=== PATIENT | male | born 1960 | race Caucasian/White ===

== ENCOUNTER 2016-07-17 21:42 | Emergency (ER) | payer MEDICAID ==
[~2016-07-17] VITALS: Ht 182.9 cm; Wt 99.8 kg
[2016-07-17 21:42] VITALS: BP 147/85
--- NOTE | 2016-07-17 21:42 | NUR ---
PATIENT BIBA TO ER BED 3
--- NOTE | 2016-07-17 22:09 | NUR ---
56/M PATIENT BIBA TO ED WITH C/O SOB AND COUGH X2DAYS. STATES HE WAS WALKING DOWN THE STREET WHEN HE HAD AN EPISODE OF COUGH FOR 3OMINS. WAS GIVEN ALBUTEROL AT HOME. DENIES ANY N/V/D OR CP. HX:HTN, DM, INSOMNIA, DEPRESSION, TRAUMATIC BRAIN INJURY. ER MD AWARE. ; SKIN IS PINK/WARM/DRY; AAOX4 WITH EVEN AND STEADY GAIT; LUNGS CLEAR BL, NON-PRODUCTIVE COUGH; HR EVEN AND REGULAR; PT DENIES ANY FEVER, CP, SOB AT THIS TIME; PATIENT STATES PAIN OF 0/10 AT THIS TIME; VSS; PATIENT POSITIONED FOR COMFORT; HOB ELEVATED; BEDRAILS UP X2; BED DOWN. ER MD MADE AWARE OF PT STATUS.
--- NOTE | 2016-07-17 22:14 | NUR ---
Dr. Kamara evaluating patient at bedside.
[2016-07-17 23:06] VITALS: BP 140/81
--- NOTE | 2016-07-17 23:06 | NUR ---
Patient discharged with v/s stable. Written and verbal after care instructions given and explained. Patient alert, oriented and verbalized understanding of instructions. Ambulatory with steady gait. All questions addressed prior to discharge. ID band removed. Patient advised to follow up with PMD. Rx of AUGMENTIN 875 MG, PROMETHAZINE DM 6.25/15MG/5ML given. Patient educated on indication of medication including possible reaction and side effects. Opportunity to ask questions provided and answered.
== END 2016-07-17 23:06 | disposition home or self-care (01) ==
LOC: MED 21:42
DX: J20.9 Acute bronchitis, unspecified (principal); E11.9 Type 2 diabetes mellitus without complications; I10 Essential (primary) hypertension; F32.9 Major depressive disorder, single episode, unspecified
CPT/HCPCS: 71010; 99283; Q0092